=== PATIENT | female | born 1970 | race African-American/Black ===

== ENCOUNTER 2020-02-27 11:07 | Emergency (ER) | payer OTHER, SELFPAY ==
[2020-02-27] VITALS (7 sets, daily range): BP systolic 133; BP diastolic 84; PULSE 41–69; RESP 9–20; TEMP 36.8; O2SAT 100
--- NOTE | ~2020-02-27 | XR_ITS ---
XR chest 2V DATE: 02/27/2020 13:24 INDICATION: Chest pain. Severe headache. TECHNIQUE: PA and lateral views COMPARISON: 02/23/2017 two-view chest FINDINGS: Bilateral cervical ribs. Normal heart size. No hilar or mediastinal enlargement. No pulmonary infiltrate or consolidation, ple ural effusion or pulmonary vascular congestion or pneumothorax. IMPRESSION: No active cardiopulmonary disease Reviewed, dictated and finalized at location A.
--- NOTE | 2020-02-27 12:55 | ECG_ITS ---
Measurements Intervals [place] Rate: 42 P: 62 DE: 174 QRS: 59 QRSD: 86 T: 54 QT: 434 QTc: 367 Interpretive Statements SINUS BRADYCARDIA WITH SINUS ARRHYTHMIA ABNORMAL ECG Electronically Signed On 02-27-2020 15:00:57 CDT by Luis France D.O.
--- NOTE | 2020-02-27 13:02 | ED.HA ---
HPI - Headache General Chief Complaint: Headache Stated Complaint: BAD HEADACHE Time Seen by Provider: 02/27/20 12:47 History of Present Illness HPI Narrative: Patient is a 49-year-old female who presents ER with several complaints. First complaint is headache ongoing for 2 weeks. States she woke up from sleep with an abrasion to her right forehead and since then she has been having throbbing frontal headache. It will radiate to behind her ears bilaterally. She feels it behind her eyes. It is worsened with bright lights. She does have history of migraine headaches and this feels similar. No known trauma but she thinks she may have hit her head since she had the abrasion. She is taken Motrin with mild improvement of symptoms but not resolution of symptoms. Additionally patient reports she is been having intermittent chest pain for the last year. It is in the center of her chest and upper epigastrium and occasionally goes so left side of her chest. Reports it is worse in the morning and occasionally worse with certain types of movements. She also reports is worsened by smoking a cigarette. No exertional symptoms. No nausea/vomiting/dizziness. Reports occasionally she will feel some tingling in her fingers and have some sweats related to it when she wakes up. Has not seen a primary care doctor regarding this. Related Data Home Medications Medication Instructions Recorded Confirmed No Home Medications 02/27/20 02/27/20 Allergies Allergy/AdvReac Type Severity Reaction Status Date / Time No Known Allergies Allergy Verified 02/27/20 11:15 Review of Systems Review of Systems: All systems reviewed & are unremarkable except as noted in HPI and below Constitutional: Constitutional: Denies chills, Denies fatigue and Denies fever(s) Eyes: Eyes: Denies change in vision and Reports photophobia ENT: Denies nasal congestion and Denies sore throat Cardiovascular: Cardiovascular: Reports chest pain, Denies rapid heart rate and Denies radiating jaw, neck or arm pain Respiratory: Respiratory: Denies cough, Denies dyspnea and Denies wheezing Gastrointestinal: Gastrointestinal: Reports abdominal pain, Denies diarrhea, Denies nausea and Denies vomiting Neurologic: Denies dizziness, Denies focal weakness and Reports numbness PMFSH Past Medical History Medical History (Updated 02/27/20 @ 15:33 by Akil Goss MD) Healthy female adult Surgical History Surgical History (Updated 06/04/20 @ 13:05 by Akil Goss MD) H/O breast biopsy H/O: hysterectomy Social History Social History (Updated 02/27/20 @ 13:06 by Akil Goss MD) Smoking status: Current every day smoker Gender identity (if verbalized by the patient): Female Exam Narrative: Exam Narrative: GENERAL: Well-appearing, well-nourished, and in no acute distress. HEAD: Normocephalic, atraumatic. ENT: Mucous membranes moist. CHEST: Clear to auscultation. No respiratory distress. HEART: Regular rate and rhythm. Normal peripheral pulses. ABDOMEN: Soft, mild epigastric tenderness without guarding, nondistended, normal active bowel sounds. EXTREMITIES: Normal range of motion. No edema. SKIN: Warm, dry, no rash. NEURO: Alert and oriented x3. PSYCH: Normal mood and affect. Course Course Emergency Course: Headache resolved with Toradol. Informed of results. Discharge home. Vital Signs Vital signs: Vital Signs Temperature 98.2 F 02/27/20 11:10 Pulse Rate 69 02/27/20 11:10 Respiratory Rate 16 02/27/20 11:10 Blood Pressure 133/84 02/27/20 11:10 Pulse Oximetry 100 02/27/20 11:10 Temperature 98.2 F 02/27/20 11:10 Pulse Rate 41 L 02/27/20 14:15 Respiratory Rate 16 02/27/20 14:15 Blood Pressure 133/84 02/27/20 11:10 Pulse Oximetry 100 02/27/20 14:15 MDM - Headache Lab Data Result diagrams: 02/27/20 14:10 02/27/20 14:10 Labs: Lab Results 02/27/20 02/27/20
--- NOTE | 2020-02-27 13:09 | PC.NURSE ---
unable to draw labs due to pt taken to x[facility].
[2020-02-27] MEDS: KETOROLAC 30 MG/ML VIAL (*BKC) IV PUSH (14:14)
[2020-02-27 14:23] LABS: Hematocrit 39.6 % (37.0-47.0); Hemoglobin 12.9 g/dL (12.0-15.0); Mean Corpuscular HGB Conc 32.6 g/dl (32-36); Mean Corpuscular Hemoglobin 28.1 pg (26-34); Mean Corpuscular Volume 86.3 fl (80-100); Mean Platelet Volume 10.2 fl (7.4-10.4); Platelet Count Result 269 k/mm3 (150-375); Red Blood Count 4.59 M/mm3 (4.2-5.4); Red Cell Distribution Width 13.5 % (11.5-14.5); White Blood Count 8.5 K/mm3 (4.5-10.0)
[2020-02-27 14:34] LABS: Alanine Aminotransferase 15 U/L (4-35); Albumin Level 4.1 g/dL (3.5-5.1); Alkaline Phosphatase 69 U/L (38-126); Aspartate Amino Transferase 22 U/L (14-36); Bilirubin,Total 0.4 mg/dL (0.2-1.3); Blood Urea Nitrogen 10 mg/dL (7-17); Calcium 8.9 mg/dL (8.4-10.2); Carbon Dioxide 30 mmol/L (22-30); Chloride 106 mmol/L (98-107); Estimated CRCL calculation 89 ml/min; Estimated Glomerular Filt Rate > 60; Glucose 78 mg/dL (65-105); Lipase 152 U/L (23-300); Potassium 3.9 mmol/L (3.4-5.0); Sodium 136 mmol/L (137-145)
[2020-02-27 14:45] LABS: Troponin I < 0.012 ng/mL (0.000-0.034)
[2020-02-27 15:22] LABS: Lymphocytes Absolute Manual 4.16 K/mm3 (1.1-4.5); Lymphocytes Percent Manual 49 % (18-44); Neutrophils Percent Manual 45 % (46-73); Total Cells Counted 100
[2020-02-27 15:23] LABS: Eosinophils Absolute Manual 0.17 K/mm3 (0.02-0.5); Eosinophils Percent Manual 2 % (0-4); Monocytes Absolute Manual 0.34 K/mm3 (0.1-0.90); Monocytes Percent Manual 4 % (3-9); Platelet Estimate Adequate (Adequate)
[2020-02-27 15:24] LABS: Atypical Lymphocytes Present; Ovalocytes 1+ (NORMAL)
== END 2020-02-27 15:50 | disposition home or self-care (01) ==
PROVIDERS: Emergency Provider Emergency Medicine
DX: R51 Headache (principal); R07.89 Other chest pain; R00.1 Bradycardia, unspecified; F17.210 Nicotine dependence, cigarettes, uncomplicated
CPT/HCPCS: 36415; 71046; 80053; 83690; 84484; 85025; 93005; 96374; 99284; J1885

== ENCOUNTER → 2020-08-25 10:32 | Outpatient (CLI) | payer OTHER, SELFPAY ==
--- NOTE | ~2020-08-25 | XR_ITS ---
XR knee LT 3V 08/25/2020 11:27 Indication: Left knee pain Procedure: 3 views left knee Comparison: 12/18/2017 Findings: No acute fracture, subluxation or dislocation. There is mild osteoarthritis. No significant joint effusion. No foreign bodies. Impression: 1: Mild tricompartment osteoarthritis of the left knee. Reviewed, dictated and finalized at location B. [employer] Impression: 1: Mild tricompartment osteoarthritis of the left knee.
--- NOTE | ~2020-08-25 | XR_ITS ---
XR lumbar spine 2-3V 08/25/2020 11:27 Indication: Posterior neck pain Procedure: 3 views lumbar spine Comparison: No prior studies for comparison. Findings: There is dextroscoliosis. Vertebral body heights are maintained. There is disc narrowing at L5-S1. There are multilevel facet degenerative changes with hypertrophy at L3-4, L4-5 and L5-S1. No fracture or traumatic malalignment. Sacral foramen are symmetric. Impression: 1: Mild-moderate lumbar spondylosis. Reviewed, dictated and finalized at location B. 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
--- NOTE | ~2020-08-25 | XR_ITS ---
XR cervical spine 4-5V 08/25/2020 11:26 Indication: Posterior neck pain Procedure: 5 views cervical spine Comparison: No prior studies for comparison. Findings: There is straightening of normal cervical lordosis. Vertebral body and disc heights are pre served. No fracture or traumatic malalignment. No prevertebral soft tissue swelling. Lung apices are normal. Odontoid process is normal. Impression: 1: No significant abnormality of the cervical spine. Reviewed, dictated and finalized at location B. [employer] AGENT Impression: 1: No significant abnormality of the cervical spine.
== END ==
PROVIDERS: PCP Emergency Medicine; Visit Provider Emergency Medicine
DX: M47.816 Spondylosis without myelopathy or radiculopathy, lumbar region (principal); R20.2 Paresthesia of skin; R20.0 Anesthesia of skin
CPT/HCPCS: 72050; 72100; 73562

== ENCOUNTER 2020-12-24 11:59 | Emergency (ER) | payer OTHER, SELFPAY ==
--- NOTE | ~2020-12-24 | XR_ITS ---
EXAMINATION: XR chest 1V portable EXAM DATE: 12/24/2020 13:03 INDICATION: Mid chest pain. TECHNIQUE: Portable AP frontal chest x-ray was obtained. Comparison is made to prior examination from 02/27/2020. FINDINGS: The lungs are clear. There are no pleural effusions. Cardiac silhouette is prominent but magnified on this AP technique. There is no pneumothorax suspected. The bones and soft tissues are unremarkable. IMPRESSION: No acute cardiopulmonary findings. Reviewed, dictated and finalized at location A.
--- NOTE | 2020-12-24 12:08 | ECG_ITS ---
Measurements Intervals [place] Rate: 50 P: 58 [place]: 163 QRS: 40 QRSD: 84 T: 51 QT: 406 QTc: 370 Interpretive Statements SINUS BRADYCARDIA BASELINE ARTIFACT- I, III, AVR, AVL, AVF BORDERLINE ECG Electronically Signed On 12-24-2020 12:50:01 CDT by Luis France D.O.
[2020-12-24 12:10] VITALS: BP 142/88; PULSE 77; RESP 18; TEMP 35.7; O2SAT 100
[2020-12-24] MEDS: ASPIRIN 81 MG CHEWABLE TABLET 324 MG PO (12:17)
[2020-12-24 12:19] LABS: Basophils Percent Auto 0.4 % (0.2-1.2); Eosinophils Absolute Auto 0.1 K/mm3 (0-0.3); Eosinophils Percent Auto 1.2 % (0-4.4); Hemoglobin 12.7 g/dL (12.0-15.0); Immature Granulocyte Absolute 0.02 K/mm3 (0.00-0.031); Immature Granulocyte Percent A 0.2 % (0-0.5); Lymphocytes Absolute Auto 3.79 K/mm3 (0.9-3.2); Mean Corpuscular HGB Conc 33.4 g/dl (32-36); Mean Corpuscular Hemoglobin 27.7 pg (26-34); Mean Platelet Volume 9.6 fl (7.4-10.4); Monocytes Absolute Auto 0.6 K/mm3 (0.1-0.6); Monocytes Percent Auto 6.4 % (2.6-8.5); Neutrophils Absolute Auto 5.4 K/mm3 (1.3-6.7); Neutrophils Percent Auto 53.8 % (45.5-73.1); Platelet Count Result 236 k/mm3 (150-375); Red Blood Count 4.58 M/mm3 (4.2-5.4); Red Cell Distribution Width 12.9 % (11.5-14.5)
[2020-12-24 12:33] LABS: INR 0.9; Prothrombin Time 12.7 Seconds (11.1-14.7)
[2020-12-24 12:34] LABS: Partial Thromboplastin Time 26.7 SECONDS (22.3-36.8)
[2020-12-24 12:36] LABS: D Dimer 0.43 ug/mL (<0.48)
[2020-12-24 13:12] LABS: Anion Gap 4 mmol/L (8-16); Blood Urea Nitrogen 11 mg/dL (7-17); Carbon Dioxide 26 mmol/L (22-30); Chloride 110 mmol/L (98-107); Estimated CRCL calculation 112 ml/min; Estimated Glomerular Filt Rate > 60; Glucose 95 mg/dL (65-105); Sodium 140 mmol/L (137-145)
[2020-12-24 13:23] LABS: Troponin I < 0.012 ng/mL (0.000-0.034)
--- NOTE | 2020-12-24 13:41 | PC.NURSE ---
Pt requesting pain medication for headache. Dr. Colon notified. no new orders at this time
--- NOTE | 2020-12-24 13:52 | ED.GENADULT ---
HPI - General Adult General Chief complaint: Chest Pain Stated complaint: Nose Drainage with Chest Tightness Time Seen by Provider: 12/24/20 12:16 Source: patient and RN notes reviewed Mode of arrival: ambulatory Limitations: no limitations History of Present Illness HPI narrative: Patient is 50 years old -[place] female presents with left chest sharp pulling pain, nasal and postnasal discharge of awful smelling with facial pain. Started 2 days ago. Patient just came from [place] after spending 4 days with her family over the day. Patient denies any family member having similar symptoms. Patient denies exposure to anybody known having Covid 19 infection. Patient denies any history of COVID-19 infection or vaccination. Patient is a smoker and uses marijuana. Related Data Allergies Allergy/AdvReac Type Severity Reaction Status Date / Time No Known Allergies Allergy Verified 03/31/20 12:58 Review of Systems Review of Systems: Narrative: CONSTITUTIONAL: Denies fever, chills, or sweats. EYES: Denies visual changes, redness, or discharge. ENT: Denies rhinorrhea, congestion, sore throat, or otalgia. CARDIOVASCULAR: Denies chest pain, palpitations, or edema. RESPIRATORY: Denies cough or dyspnea. GASTROINTESTINAL: Denies abdominal pain, nausea, vomiting, or diarrhea. GENITOURINARY: Denies dysuria or hematuria. SKIN: Denies rash or itching. MUSCULOSKELETAL: Denies back pain, joint pain, or myalgia. NEUROLOGIC: Denies headache, numbness, or weakness. PSYCHIATRIC: Denies anxiety or depression. [facility] Past Medical History Medical History (Updated 12/24/20 @ 13:57 by Amber Colon MD) Healthy female adult Surgical History Surgical History (System 03/31/20 @ 12:58 by Zuleyka Blair) H/O breast biopsy H/O: hysterectomy Social History Social History (System 03/31/20 @ 12:58 by Zuleyka Blair) Smoking status: Current every day smoker Gender identity (if verbalized by the patient): Female Exam Narrative: Exam Narrative: General appearance: Well-developed, well-nourished Skin: Normal color Head: Normocephalic, nontraumatic Eyes: Clear conjunctiva ENT: Oropharynx normal, ears normal, nose normal, diffuse tenderness of the maxillary sinus bilaterally Neck: Supple, nontender Chest and respiratory: Airway patent, no respiratory distress, no accessory muscle use, mild tenderness left chest with light palpation, no rash or swelling. Heart: Regular rate/rhythm Abdomen: Soft, nontender, no organomegaly, quiet bowel sounds Vascular: Normal peripheral pulses, normal capillary refill. 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, no gross motor deficit Course Course Emergency Course: Stable Vital Signs Vital signs: Vital Signs Temperature 35.7 C L 12/24/20 12:10 Pulse Rate 77 12/24/20 12:10 Respiratory Rate 18 12/24/20 12:10 Blood Pressure 142/88 H 12/24/20 12:10 Pulse Oximetry 100 12/24/20 12:10 Temperature 35.7 C L 12/24/20 12:10 Pulse Rate 77 12/24/20 12:10 Respiratory Rate 18 12/24/20 12:10 Blood Pressure 142/88 H 12/24/20 12:10 Pulse Oximetry 100 12/24/20 12:10 Medical Decision Making [facility] Narrative Medical decision making narrative: Musculoskeletal pain, sinus infection, viral infection are my concern. Labs, chest x-ray, EKG, D-dimer ordered. Further plan to follow Differential Diagnosis Differential Diagnosis: Respiratory viral infection, musculoskeletal chest pain, acute sinusitis Vital Signs Vital Signs: Vital Signs Temperature 35.7 C L 12/24/20 12:10 Pulse Rate 77 12/24/20 12:10 Respiratory Rat
[2020-12-24] MEDS: KETOROLAC 30 MG/ML VIAL (*BKC) IV PUSH (14:11)
[2020-12-25 19:22] LABS: SARS-CoV-2 RNA PCR Negative
== END 2020-12-24 14:16 | disposition home or self-care (01) ==
PROVIDERS: Emergency Medicine; Emergency Provider Emergency Medicine; PCP Emergency Medicine
DX: R07.89 Other chest pain (principal); J01.00 Acute maxillary sinusitis, unspecified; F17.200 Nicotine dependence, unspecified, uncomplicated; Z20.822 Contact with and (suspected) exposure to COVID-19
CPT/HCPCS: 36415; 71045; 80048; 84484; 85025; 85380; 85610; 85730; 93005; 96374; 99284; A9270; C9803; J1885; U0003; U0005

== ENCOUNTER 2021-03-16 14:00 | Emergency (ER) | payer OTHER, SELFPAY ==
--- NOTE | ~2021-03-16 | XR_ITS ---
XR knee LT 3V 03/16/2021 14:46 Indication: Left knee pain Procedure: 3 views left knee Comparison: 08/25/2020. Findings: There is mild osteoarthritis of the left knee. No fracture, subluxation or dislocation. No significant joint effusion. No foreign bodies. Impression: 1: Mild osteoarthritis of the left knee. Reviewed, dictated and finalized at location B. Impression: 1: Mild osteoarthritis of the left knee.
[2021-03-16 14:20] VITALS: BP 150/86; PULSE 96; RESP 22; TEMP 36.6; O2SAT 99
[2021-03-16] MEDS: HYDROmorphone HCL INJ (*CRX) 1 MG/ML SYR IV PUSH (14:27)
--- NOTE | 2021-03-16 15:53 | ED.GENADULT ---
HPI - General Adult General Chief complaint: Extremity Injury, Lower Stated complaint: knee cap dislocated Source: patient, EMS and RN notes reviewed Limitations: no limitations History of Present Illness HPI narrative: Patient is a 50-year-old female who presents with left lateral knee pain that began while trying to get into her car today patient notes aching pain. patient denies other injury or trauma. Patient has not taken anything for pain presents per EMS was given morphine in route. Patient notes that she has had similar occurrences in the past but never followed up with specialty services Related Data Allergies Allergy/AdvReac Type Severity Reaction Status Date / Time No Known Allergies Allergy Verified 03/16/21 14:15 Review of Systems Review of Systems: All systems reviewed & are unremarkable except as noted in HPI and below PMFSH Past Medical History Medical History Healthy female adult Surgical History Surgical History H/O breast biopsy H/O: hysterectomy Social History Social History Smoking status: Current every day smoker Gender identity (if verbalized by the patient): Female Exam Narrative: Exam Narrative: GENERAL: Well-appearing, well-nourished, and in no acute distress. HEAD: Normocephalic, atraumatic. EYES: PERRLA and EOMI. ENT: Nares clear, no rhinorrhea or epistaxis. Mucous membranes moist. CHEST: Clear to auscultation. No respiratory distress. No wheezes rales or rhonchi HEART: Regular rate and rhythm. No murmur heard. Normal peripheral pulses. EXTREMITIES: Tenderness to the lateral aspect of the left knee no deformities noted SKIN: Warm, dry, no rash. NEURO: No focal deficits. Alert and oriented x3. Neurovascularly intact. Capillary refill less than 2 seconds PSYCH: Normal mood and affect. Course Course Emergency Course: Patient in the room in no distress aware of case findings treatment plan diagnosis agreeing to follow-up with specialty services pain resolved Vital Signs Vital signs: Vital Signs Temperature 97.8 F 03/16/21 14:20 Pulse Rate 96 03/16/21 14:20 Respiratory Rate 22 H 03/16/21 14:20 Blood Pressure 150/86 H 03/16/21 14:20 Pulse Oximetry 99 03/16/21 14:20 Temperature 97.8 F 03/16/21 14:20 Pulse Rate 96 03/16/21 14:20 Respiratory Rate 22 H 03/16/21 14:20 Blood Pressure 150/86 H 03/16/21 14:20 Pulse Oximetry 99 03/16/21 14:20 Medical Decision Making MDM Narrative Medical decision making narrative: Patients injury or pain is consistent with musculoskeletal etiology. No signs of neurological or vascular compromise on exam. Compartments and tisues are soft without signs of compartment syndrome. Pain is felt appropriate for further evaluation on an outpatient basis. Vital Signs Vital Signs: Vital Signs Temperature 97.8 F 03/16/21 14:20 Pulse Rate 96 03/16/21 14:20 Respiratory Rate 22 H 03/16/21 14:20 Blood Pressure 150/86 H 03/16/21 14:20 Pulse Oximetry 99 03/16/21 14:20 Temperature 97.8 F 03/16/21 14:20 Pulse Rate 96 03/16/21 14:20 Respiratory Rate 22 H 03/16/21 14:20 Blood Pressure 150/86 H 03/16/21 14:20 Pulse Oximetry 99 03/16/21 14:20 Imaging Data Radiologist's impression: ITS Impressions Knee X-Ray 03/16/21 14:51 Impression: 1: Mild osteoarthritis of the left knee. Discharge Plan Discharge Clinical Impression: Acute pain of left knee Patient Disposition: Home, Self-Care Condition: Stable Instructions: Antibiotic Form, Arthralgia (ED) Additional Instructions: Wear brace and use crutches. No weight on the affected leg until able to bear weight without pain. Ice and elevate extremity. Pain medication as needed and directed. Follow up with your doctor for further care in the next 7 days.
[2021-03-16 16:15] VITALS: BP 136/96; PULSE 96; RESP 18; TEMP 36.7; O2SAT 99
== END 2021-03-16 16:15 | disposition home or self-care (01) ==
PROVIDERS: Emergency Provider Emergency Medicine; PCP Emergency Medicine
DX: M25.562 Pain in left knee (principal); F17.200 Nicotine dependence, unspecified, uncomplicated; M17.12 Unilateral primary osteoarthritis, left knee
CPT/HCPCS: 73562; 96374; 99284; J1170

== ENCOUNTER 2021-04-08 10:47 | Emergency (ER) | payer OTHER, SELFPAY ==
--- NOTE | ~2021-04-08 | XR_ITS ---
EXAMINATION: XR chest 2V EXAM DATE: 04/08/2021 11:14 INDICATION: Chest pain elevated blood pressure. TECHNIQUE: Frontal and lateral projections of the chest obtained and reviewed. Comparison is made to prior examination from 12/24/2020. FINDINGS: The lungs are clear. There are no pleural effusions. The cardiomediastinal silhouette is within normal limits. There is no pneumothorax suspected. The bones and soft tissues are unremarkab le. IMPRESSION: No acute cardiopulmonary findings. Reviewed, dictated and finalized at location B.
--- NOTE | 2021-04-08 10:50 | ECG_ITS ---
Measurements Intervals [place] Rate: 56 P: 58 [place]: 176 QRS: 41 QRSD: 88 T: 52 QT: 405 QTc: 393 Interpretive Statements SINUS BRADYCARDIA WITH SINUS ARRHYTHMIA BORDERLINE ECG Electronically Signed On 04-08-2021 12:00:59 CDT by Luis France D.O.
[2021-04-08 10:51] VITALS: BP 161/94; PULSE 68; RESP 19; TEMP 36.8; O2SAT 98
[2021-04-08 10:57] VITALS: PULSE 62
--- NOTE | 2021-04-08 11:07 | ED.CHESTPAIN ---
HPI - Chest Pain General Chief Complaint: Chest Pain Stated Complaint: Abnormal EKG sent by PCP Time Seen by Provider: 04/08/21 10:56 Source: patient and RN notes reviewed Limitations: no limitations History of Present Illness HPI narrative: Patient is 51 years old -Citizen Of [place] female presents to the ED with intermittent pain at the right chest for the last 2 months. Sharp, stabbing, shooting pain, usually last for few seconds to few minutes each time. Patient denies any aggravating or relieving factors. Patient denies any fever, chills, nausea, vomiting, patient is a smoker, uses marijuana, does not drink. Related Data Allergies Allergy/AdvReac Type Severity Reaction Status Date / Time No Known Allergies Allergy Verified 04/08/21 10:57 Review of Systems Review of Systems: Narrative: CONSTITUTIONAL: Denies fever, chills, or sweats. EYES: Denies visual changes, redness, or discharge. ENT: Denies rhinorrhea, congestion, sore throat, or otalgia. CARDIOVASCULAR: Denies chest pain, palpitations, or edema. RESPIRATORY: Denies cough or dyspnea. GASTROINTESTINAL: Denies abdominal pain, nausea, vomiting, or diarrhea. GENITOURINARY: Denies dysuria or hematuria. SKIN: Denies rash or itching. MUSCULOSKELETAL: Denies back pain, joint pain, or myalgia. NEUROLOGIC: Denies headache, numbness, or weakness. PSYCHIATRIC: Denies anxiety or depression. PMFSH Past Medical History Medical History Healthy female adult Surgical History Surgical History H/O breast biopsy H/O: hysterectomy Social History Social History Smoking status: Current every day smoker Gender identity (if verbalized by the patient): Female Exam Narrative: Exam Narrative: General appearance: Well-developed, well-nourished Skin: Normal color Head: Normocephalic, nontraumatic Eyes: Clear conjunctiva ENT: Oropharynx normal, ears normal, nose normal Neck: Supple, nontender Chest and respiratory: Airway patent, no respiratory distress, no accessory muscle use, mild to moderate tenderness right chest, no mass, no bruises, no rash Heart: Regular rate/rhythm Abdomen: Soft, nontender, no organomegaly, quiet bowel sounds Vascular: Normal peripheral pulses, normal capillary refill. 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 Musculoskeletal, stress related is my concern. Labs, D-dimer, EKG chest x-ray, ordered. Further plan to follow Differential Diagnosis Differential diagnosis: Likely atypical chest pain, costochondritis and chest pain Lab Data Result diagrams: 04/08/21 11:08 04/08/21 11:08 Labs: Lab Results 04/08/21 04/08/21 04/08/21 Range/Units 11:08 11:08 11:42 WBC 9.8 (4.5-10.0) K/mm3 RBC 4.48 (4.2-5.4) M/mm3 Hgb 12.6 (12.0-15.0) g/dL Hct 38.4 (37.0-47.0) % MCV 85.7 (80-100) fl MCH 28.1 (26-34) pg MCHC 32.8 (
[2021-04-08 11:15] LABS: Basophils Absolute Auto 0.1 K/mm3 (0.0-0.1); Basophils Percent Auto 0.5 % (0.2-1.2); Eosinophils Absolute Auto 0.2 K/mm3 (0-0.3); Hematocrit 38.4 % (37.0-47.0); Hemoglobin 12.6 g/dL (12.0-15.0); Immature Granulocyte Absolute 0.03 K/mm3 (0.00-0.031); Immature Granulocyte Percent A 0.3 % (0-0.5); Lymphocytes Absolute Auto 3.14 K/mm3 (0.9-3.2); Lymphocytes Percent Auto 32.2 % (18.3-44.2); Mean Corpuscular HGB Conc 32.8 g/dl (32-36); Mean Corpuscular Hemoglobin 28.1 pg (26-34); Mean Corpuscular Volume 85.7 fl (80-100); Mean Platelet Volume 9.8 fl (7.4-10.4); Monocytes Absolute Auto 0.6 K/mm3 (0.1-0.6); Neutrophils Absolute Auto 5.8 K/mm3 (1.3-6.7); Platelet Count Result 244 k/mm3 (150-375); Red Blood Count 4.48 M/mm3 (4.2-5.4); Red Cell Distribution Width 14.2 % (11.5-14.5); White Blood Count 9.8 K/mm3 (4.5-10.0)
--- NOTE | 2021-04-08 11:21 | PC.NURSE ---
called lab talked to Mckenzie added on a D dimer at 1120
[2021-04-08 11:33] LABS: Anion Gap 5 mmol/L (8-16); Blood Urea Nitrogen 14 mg/dL (7-17); Calcium 9.3 mg/dL (8.4-10.2); Carbon Dioxide 24 mmol/L (22-30); Chloride 109 mmol/L (98-107); Estimated CRCL calculation 114 ml/min; Estimated Glomerular Filt Rate > 60; Glucose 87 mg/dL (65-105); Potassium 4.4 mmol/L (3.4-5.0); Sodium 138 mmol/L (137-145)
[2021-04-08 11:37] LABS: Troponin I < 0.012 ng/mL (0.000-0.034)
[2021-04-08 12:02] LABS: INR 0.9; Prothrombin Time 12.1 Seconds (11.1-14.7)
[2021-04-08 12:04] LABS: Partial Thromboplastin Time 26.5 SECONDS (22.3-36.8)
[2021-04-08 12:11] LABS: D Dimer 0.34 ug/mL (<0.48)
[2021-04-08] MEDS: KETOROLAC 30 MG/ML VIAL (*BKC) (12:12)
--- NOTE | 2021-04-08 12:12 | PC.NURSE ---
Verbal order received from EDP for 30mg toradol for 04/03 chest pain. Due to IT issues med not crossing from orders to MAR. Toradol administered at this time.
[2021-04-08 13:11] VITALS: BP 139/81; PULSE 54; RESP 14; O2SAT 100
== END 2021-04-08 13:18 | disposition home or self-care (01) ==
PROVIDERS: Emergency Provider Emergency Medicine; PCP Emergency Medicine
DX: R07.9 Chest pain, unspecified (principal); F17.200 Nicotine dependence, unspecified, uncomplicated
CPT/HCPCS: 36415; 71046; 80048; 84484; 85025; 85380; 85610; 85730; 93005; 96374; 99284; J1885

== ENCOUNTER 2021-04-13 15:51 | Outpatient (CLI) | payer OTHER, SELFPAY ==
--- NOTE | ~2021-04-13 | MM_ITS ---
EXAMINATION: MM screening stacey BI w inga HISTORY: Screening TECHNIQUE: Craniocaudal and mediolateral oblique 3-D tomosynthesis images were obtained and synthetic 2-D images were generated. CAD analysis was submitted and interpreted. COMPARISON: No prior mammogram is available for comparison at this institution. BREAST PARENCHYMAL COMPOSITION: There are scattered areas of fibroglandular density. FINDINGS: There is no evidence of suspicious mass, calcification, or architectural distortion to sugg est malignancy in either breast. There has been no suspicious interval change. IMPRESSION: 1. No mammographic evidence of malignancy. 2. Recommend routine screening mammography in one year. BI-RADS Category 1: Negative Reviewed, dictated and finalized at location A.
== END 2021-04-13 15:52 | disposition home or self-care (01) ==
LOC: ANHIMG 15:53
PROVIDERS: PCP Emergency Medicine; Visit Provider Emergency Medicine
DX: Z12.31 Encounter for screening mammogram for malignant neoplasm of breast (principal)
CPT/HCPCS: 77063; 77067

== ENCOUNTER 2021-12-20 11:06 | Emergency (ER) | payer MEDICAID, SELFPAY ==
[2021-12-20 11:20] VITALS: BP 143/82; PULSE 66; RESP 16; TEMP 36.8; O2SAT 99
--- NOTE | 2021-12-20 12:58 | ED.GENADULT ---
HPI - General Adult General Chief complaint: Unspecified Stated complaint: cyst on leg Time Seen by Provider: 12/20/21 12:06 Source: patient Mode of arrival: ambulatory Limitations: no limitations History of Present Illness HPI narrative: Patient is a 51-year-old female swollen, painful area on her left inguinal region, started 1 week ago, noticed some drainage yesterday but now resolved. Patient denies any fever or chills. Related Data Allergies Allergy/AdvReac Type Severity Reaction Status Date / Time No Known Allergies Allergy Verified 12/20/21 11:46 Review of Systems Review of Systems: Per HPI All systems reviewed & are unremarkable except as noted in HPI and below Constitutional: Constitutional: Denies body ache(s), Denies chills, Denies excessive sweating, Denies fatigue, Denies fever(s), Denies headache(s), Denies lethargy, Denies malaise, Denies weakness and Denies weight loss Eyes: Eyes: Denies blurry vision, Denies change in vision and Denies loss of vision ENT: Denies dizziness, Denies ear discharge, Denies headache(s), Denies lip swelling, Denies epistaxis, Denies nasal congestion, Denies neck pain, Denies throat swelling and Denies tongue swelling Cardiovascular: Cardiovascular: Denies chest pain, Denies chest pain at rest, Denies chest pain with activity, Denies diaphoresis, Denies rapid heart rate, Denies edema, Denies irregular heart rhythm, Denies lightheadedness, Denies palpitations, Denies dyspnea and Denies dyspnea on exertion Respiratory: Respiratory: Denies chest congestion, Denies cough, Denies hemoptysis, Denies dyspnea and Denies dyspnea on exertion Gastrointestinal: Gastrointestinal: Denies abdominal pain, Denies melena, Denies hematochezia, Denies diarrhea, Denies nausea, Denies vomiting and Denies hematemesis Musculoskeletal: Musculoskeletal: Denies abnormal gait, Denies deformity, Denies joint swelling, Denies limited range of motion, Denies neck pain and Denies numbness Neurologic: Denies Abnormal speech present, Denies abnormal gait, Denies confusion, Denies dizziness, Denies headache(s), Denies focal weakness, Denies loss of vision, Denies numbness, Denies Other visual disturbances, Denies Sensory deficit (Neuro) and Denies weakness Psychiatric: Psychiatric: Denies confusion, Denies depression, Denies auditory hallucinations, Denies homicidal ideation and Denies suicidal ideation Endocrine: Endocrine: Denies cold intolerance, Denies excessive sweating, Denies fatigue, Denies heat intolerance and Denies palpitations Hematologic/Lymphatic: Hematologic/Lymphatic: Denies easy bleeding and Denies easy bruising Allergic/Immunologic: Allergic/Immunologic: Denies lip swelling, Denies throat swelling and Denies tongue swelling PMFSH Past Medical History Medical History Healthy female adult Surgical History Surgical History H/O breast biopsy H/O: hysterectomy Social History Social History Smoking status: Current every day smoker Gender identity (if verbalized by the patient): Female Exam Const: General: cooperative, comfortable, no acute distress, well developed, alert and awake; No confusion Nutritional Appearance: obese Orientation/consciousness: oriented to person, oriented to place, oriented to time, patient oriented x3 and No confusion Limitations: no limitations HENMT: Head: normal to inspection, normocephalic and atraumatic Ears: hearing grossly normal bilaterally, TM normal on the right and TM normal on the left General nose exam: Normal external nose present, Normal nares present and No nasal discharge present Face and sinus: normal facial exam Mouth: Yes Normal oral and palatal mucosa present, Yes lip normal, Yes tongue normal and Yes oropharynx normal Throat: posterior oropharynx normal, tonsils normal and uvula mi
== END 2021-12-20 15:10 | disposition home or self-care (01) ==
PROVIDERS: Emergency Provider Emergency Medicine
DX: L02.214 Cutaneous abscess of groin (principal); F17.200 Nicotine dependence, unspecified, uncomplicated
CPT/HCPCS: 10061; 87070; 87075; 87205; 99283

== ENCOUNTER 2022-06-07 23:23 | Emergency (ER) | payer OTHER, SELFPAY ==
[2022-06-07 23:24] VITALS: BP 187/88; PULSE 77; RESP 16; TEMP 36.4; O2SAT 100
--- NOTE | 2022-06-08 01:16 | ED.HA ---
HPI - Headache General Chief Complaint: Headache <JEN Méndez Last Filed: 06/08/22 03:20> Stated Complaint: migraine <JEN Méndez Last Filed: 06/08/22 03:20> Time Seen by Provider: 06/07/22 23:40 <JEN Méndez Last Filed: 06/08/22 03:20> Source: patient <JEN Méndez Last Filed: 06/08/22 03:20> Mode of arrival: ambulatory <JEN Méndez Last Filed: 06/08/22 03:20> Limitations: no limitations <JEN Méndez Last Filed: 06/08/22 03:20> History of Present Illness HPI Narrative: Patient is a 52-year-old female who presents the ED with a migraine headache. Patient reports having a headache since last . She has intermittently been taking Tylenol with minimal relief. She does have a history of migraines but has never seen anyone for this. States this feels typical of her previous migraines but she is usually able to control them on her own. She also reports having nausea, photophobia, phonophobia, but denies fever, neck pain, weakness, cough, cold symptoms, vomiting, abdominal pain, vision changes. <JEN Méndez Last Filed: 06/08/22 03:20> Related Data Allergies/Adverse Reactions: Allergies Allergy/AdvReac Type Severity Reaction Status Date / Time No Known Allergies Allergy Verified 12/20/21 11:46 <JEN Méndez Last Filed: 06/08/22 03:20> Review of Systems Review of Systems: CONSTITUTIONAL: Denies fever, chills, or sweats. EYES: Reports photophobia. Denies visual changes. ENT: Reports phonophobia. Denies rhinorrhea, congestion, sore throat. CARDIOVASCULAR: Denies chest pain. RESPIRATORY: Denies cough or dyspnea. GASTROINTESTINAL: Reports nausea. Denies abdominal pain, vomiting, or diarrhea. MUSCULOSKELETAL: Denies neck pain. 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 Denies dizziness, numbness, or weakness. <Stefanie Acosta PA-C - Last Filed: 06/08/22 03:20> All systems reviewed & are unremarkable except as noted in HPI and below <Stefanie Acosta PA-C - Last Filed: 06/08/22 03:20> PMFSH Past Medical History Medical History: Medical History History of migraine <Stefanie Acosta PA-C - Last Filed: 06/08/22 03:20> Surgical History Surgical History: Surgical History H/O breast biopsy H/O: hysterectomy <Stefanie Acosta PA-C - Last Filed: 06/08/22 03:20> Social History Social History: Social History Smoking status: Current every day smoker Gender identity (if verbalized by the patient): Female <Stefanie Acosta PA-C - Last Filed: 06/08/22 03:20> Exam Narrative: GENERAL: Well appearing, well-nourished, non-toxic, in no acute distress. HEAD: Normocephalic, atraumatic. EYES: PERRL/EOMI, conjunctivae clear bilaterally. NECK: Supple. No adenopathy, no masses. Full nonpainful range of motion. No meningeal signs. RESPIRATORY: Airway patent, respirations nonlabored. Clear to auscultation bilaterally, no rales, rhonchi, wheezing. CARDIOVASCULAR: Regular rate and rhythm without murmurs, rubs, or gallops. Peripheral pulses 2+ and equal bilaterally. ABDOMINAL: Soft, nontender, nondistended, no hepatosplenomegaly. Normoactive BS. MUSCULOSKELETAL: Moves all extremities. Strength/ROM intact without gross deformities. SKIN: Warm, dry, normal color. No rashes. NEURO: A&O X3. Speech clear. Cranial nerves II-XII grossly intact. Steady gait. No ataxic movements. Strength 5 out of 5 in upper and lower extremities bilaterally. Equal leather roller strengths. No focal deficits. PSYCHIATRIC: Appropriate mood and affect. Normal interaction. <Stefanie Acosta PA-C - Last Filed: 06/08/22 03:20> Course [employer]/PA Physician Supervision I discussed
[2022-06-08 01:40] VITALS: BP 153/78; PULSE 70; RESP 20; O2SAT 100
[2022-06-08] MEDS: diphenhydrAMINE HCl INJ 50 MG/ML VIAL 25 MG IV PUSH (01:45)
[2022-06-08] MEDS: KETOROLAC 30 MG/ML VIAL (*BKC) IV PUSH (01:45)
[2022-06-08] MEDS: METOCLOPRAMIDE HCL INJ 10 MG/2 ML VIAL IV PUSH (01:45)
[2022-06-08] MEDS: SODIUM CHLORIDE 0.9% IV 1,000 ML 999 ML IV CONT (01:47)
[2022-06-08 03:08] VITALS: BP 148/75; PULSE 63; RESP 18; O2SAT 100
== END 2022-06-08 03:17 | disposition home or self-care (01) ==
PROVIDERS: Emergency Provider Preventive Medicine Aerospace Medicine
DX: G43.909 Migraine, unspecified, not intractable, without status migrainosus (principal)
CPT/HCPCS: 96365; 96375; 99284; J0131; J1100; J1200; J1885; J2765; J7030

== ENCOUNTER 2023-02-16 23:12 | Emergency (ER) | payer OTHER, SELFPAY ==
--- NOTE | ~2023-02-16 | XR_ITS ---
EXAMINATION: XR chest 2V DATE: 02/16/2023 23:36 INDICATION: Chest pain and shortness of breath TECHNIQUE: PA and lateral views of the chest are obtained. COMPARISON: 04/08/2021 FINDINGS: There is mild atelectasis of the lung bases. The lungs are free of focal airspace opacities . No pleural effusion or pneumothorax. The cardiomediastinal silhouette is normal. The visualized bon es and soft tissues are unremarkable. IMPRESSION: 1. No acute cardiopulmonary abnormality. Reviewed, dictated and finalized at location [facility].
[2023-02-16 23:14] VITALS: BP 172/97; PULSE 73; RESP 20; TEMP 36.1; O2SAT 99
--- NOTE | 2023-02-16 23:20 | ECG_ITS ---
Measurements Intervals [place] Rate: 47 P: 53 MS: 168 QRS: 34 QRSD: 82 T: 53 QT: 409 QTc: 364 Interpretive Statements SINUS BRADYCARDIA BASELINE WANDER- I, III, AVL, AVF ABNORMAL ECG COMPARED TO ECG 04/08/2021 10:56:47 HEART RATE HAS DECREASED Electronically Signed On 02-17-2023 6:35:49 CDT by Luis France D.O.
[2023-02-16 23:35] LABS: Basophils Percent Auto 0.2 % (0.2-1.2); Eosinophils Absolute Auto 0.1 K/mm3 (0-0.3); Eosinophils Percent Auto 1.5 % (0-4.4); Hematocrit 36.9 % (37.0-47.0); Hemoglobin 12.3 g/dL (12.0-15.0); Immature Granulocyte Absolute 0.01 K/mm3 (0.00-0.031); Immature Granulocyte Percent A 0.1 % (0-0.5); Lymphocytes Absolute Auto 3.46 K/mm3 (0.9-3.2); Lymphocytes Percent Auto 38.3 % (18.3-44.2); Mean Corpuscular HGB Conc 33.3 g/dl (32-36); Mean Corpuscular Hemoglobin 28.1 pg (26-34); Mean Corpuscular Volume 84.2 fl (80-100); Mean Platelet Volume 9.8 fl (7.4-10.4); Monocytes Absolute Auto 0.6 K/mm3 (0.1-0.6); Monocytes Percent Auto 6.6 % (2.6-8.5); Neutrophils Absolute Auto 4.8 K/mm3 (1.3-6.7); Neutrophils Percent Auto 53.3 % (45.5-73.1); Platelet Count Result 242 k/mm3 (150-375); Red Blood Count 4.38 M/mm3 (4.2-5.4); Red Cell Distribution Width 13.7 % (11.5-14.5)
[2023-02-16 23:45] LABS: Alanine Aminotransferase 22 U/L (6-35); Albumin Level 4.1 g/dL (3.5-5.1); Alkaline Phosphatase 89 U/L (38-126); Anion Gap 6 mmol/L (8-16); Aspartate Amino Transferase 24 U/L (14-36); Bilirubin,Total 0.3 mg/dL (0.2-1.3); Blood Urea Nitrogen 12 mg/dL (7-17); Calcium 8.9 mg/dL (8.4-10.2); Carbon Dioxide 27 mmol/L (22-30); Chloride 107 mmol/L (98-107); Estimated CRCL calculation 117 ml/min; Estimated Glomerular Filt Rate > 60; Glucose 99 mg/dL (65-110); Lipase 128 U/L (23-300); Potassium 3.7 mmol/L (3.4-5.0); Sodium 140 mmol/L (137-145)
--- NOTE | 2023-02-16 23:45 | ED.GENADULT ---
HPI - General Adult General Chief complaint: Headache <JEN Clements Last Filed: 02/17/23 02:46> Stated complaint: migraine <JEN Clements Last Filed: 02/17/23 02:46> Time Seen by Provider: 02/16/23 23:21 <JEN Clements Last Filed: 02/17/23 02:46> Source: patient <JEN Clements Last Filed: 02/17/23 02:46> Mode of arrival: ambulatory <JEN Clements Last Filed: 02/17/23 02:46> Limitations: no limitations <JEN Clements Last Filed: 02/17/23 02:46> History of Present Illness HPI narrative: This is a 52-year-old female with PMH of migraine presents to the ED with multiple complaints. Patient reports migraine with with pain behind the eyes. She reports nausea/vomiting/diarrhea. She reports shortness of breath and chest pain. She also reports numbness and tingling in her hands and feet. She states most of the symptoms started on Monday this week. She has had some increased chest pain and shortness of breath today so she came to the ER. She also reports blurred vision. Patient states she was taking Tylenol for the headache which had no relief. Denies fevers, chills, abdominal pain, urinary symptoms. Denies any alcohol use. Endorses marijuana use but no other drug use. States she has no medical history other than migraines and does not take any regular medications <JEN Clements Last Filed: 02/17/23 02:46> Related Data Allergies/adverse reactions: Allergies Allergy/AdvReac Type Severity Reaction Status Date / Time No Known Allergies Allergy Verified 12/20/21 11:46 <JEN Clements Last Filed: 02/17/23 02:46> Review of Systems Review of Systems: CONSTITUTIONAL: Denies fever, chills, or sweats. EYES: Denies visual changes, redness, or discharge. ENT: Denies rhinorrhea, congestion, sore throat, or otalgia. CARDIOVASCULAR: Denies chest pain, palpitations, or edema. RESPIRATORY: Denies cough or dyspnea. GASTROINTESTINAL: See HPI GENITOURINARY: Denies dysuria or hematuria. SKIN: Denies rash or itching. MUSCULOSKELETAL: Denies back pain, joint pain, or myalgia. NEUROLOGIC: Denies headache, numbness, dizziness, or weakness. PSYCHIATRIC: Denies anxiety or depression. <Gregg Damon PA-C - Last Filed: 02/17/23 02:46> PMFSH Past Medical History Medical History: Medical History History of migraine <Gregg Damon PA-C - Last Filed: 02/17/23 02:46> Surgical History Surgical History: Surgical History H/O breast biopsy H/O: hysterectomy <Gregg Damon PA-C - Last Filed: 02/17/23 02:46> Social History Social History: Social History Smoking status: Current every day smoker Gender identity (if verbalized by the patient): Female <Gregg Damon PA-C - Last Filed: 02/17/23 02:46> Exam Narrative: GENERAL: Well-appearing, well-nourished, and in no acute distress. Resting comfortably in bed. HEAD: Normocephalic, atraumatic. EYES: PERRLA and EOMI. ENT: Nares clear, no rhinorrhea or epistaxis. Mucous membranes moist. Oropharynx without tonsillar hypertrophy exudate or other lesions. NECK: Supple. No adenopathy or masses. CHEST: No respiratory distress. Clear to auscultation. No wheezes rales or rhonchi HEART: Regular rate and rhythm. No murmur heard. Normal peripheral pulses. ABDOMEN: Soft, nontender, nondistended, normal active bowel sounds. MSK: Normal range of motion. No edema. SKIN: Warm, dry, no rash. NEURO: Alert and oriented x3. No focal deficits. Cranial nerves II through XII intact. PSYCH: Normal mood and affect. <Gregg Damon PA-C - Last Filed: 02/17/23 02:46> Course Course Emergency Course: Reevaluation 0057: Patient states that her headache is much improved, as well as the chest pain
[2023-02-16 23:47] LABS: Prothrombin Time 13.3 Seconds (11.1-14.7)
[2023-02-16 23:48] LABS: Partial Thromboplastin Time 26.9 SECONDS (22.3-36.8)
[2023-02-17] VITALS (12 sets, daily range): BP systolic 146; BP diastolic 83; PULSE 38–80; RESP 11–25; O2SAT 98–100
[2023-02-17] LABS: Troponin I < 0.012 ng/mL (0.000-0.034)
[2023-02-17] MEDS: ONDANSETRON INJ 4 MG/2 ML VIAL IV PUSH (00:16)
[2023-02-17] MEDS: KETOROLAC 15 MG/ML VIAL (*BKC) IV PUSH (00:16)
[2023-02-17] MEDS: diphenhydrAMINE HCl INJ 50 MG/ML VIAL 25 MG IV PUSH (00:16)
[2023-02-17] MEDS: SODIUM CHLORIDE 0.9% IV 1,000 ML 999 ML IV CONT (00:16)
[2023-02-17] MEDS: PROCHLORPERAZINE EDISYLATE 10 MG/2 ML VIAL IV PUSH (00:16)
[2023-02-17 02:56] LABS: Troponin I < 0.012 ng/mL (0.000-0.034)
== END 2023-02-17 03:52 | disposition home or self-care (01) ==
PROVIDERS: Emergency Medicine; Emergency Provider Physician Assistant
DX: R51.9 Headache, unspecified (principal); R07.9 Chest pain, unspecified; Z90.710 Acquired absence of both cervix and uterus; R00.1 Bradycardia, unspecified
CPT/HCPCS: 36415; 71046; 80053; 83690; 84484; 85025; 85610; 85730; 93005; 96361; 96374; 96375; 99284; J0780; J1200; J1885; J2405; J7030

== ENCOUNTER 2023-08-06 11:39 | Emergency (ER) | payer SELFPAY ==
[2023-08-06 11:49] VITALS: BP 144/90; PULSE 68; RESP 16; TEMP 36.7; O2SAT 100
[2023-08-06 11:52] VITALS: BP 144/90; PULSE 68; RESP 16; TEMP 36.7; O2SAT 100
--- NOTE | 2023-08-06 12:41 | ED.GENADULT ---
HPI - General Adult General Chief complaint: Nausea/Vomiting/Diarrhea Stated complaint: Vomiting/Diarrhea Source: patient Mode of arrival: ambulatory Limitations: no limitations History of Present Illness HPI narrative: patient presents for evaluation of nausea, vomiting, diarrhea for the last 5 days. No new foods or antibiotic use. Her son currently has similar symptoms. Her symptoms are improving but her employer requested she receive a note to allow her to return to work. No fever, chills, abdominal pain, respiratory symptoms. She has had a dull frontal headache for a few days. Related Data Allergies Allergy/AdvReac Type Severity Reaction Status Date / Time No Known Allergies Allergy Verified 08/06/23 11:52 Review of Systems Review of Systems: CONSTITUTIONAL: Denies fever, chills, or sweats. EYES: Denies visual changes, redness, or discharge. ENT: Denies rhinorrhea, congestion, sore throat, or otalgia. CARDIOVASCULAR: Denies chest pain, palpitations, or edema. RESPIRATORY: Denies cough or dyspnea. GASTROINTESTINAL: Reports nausea, vomiting and diarrhea. Denies abdominal pain. GENITOURINARY: Denies dysuria or hematuria. SKIN: Denies rash or itching. MUSCULOSKELETAL: Denies back pain, joint pain, or myalgia. NEUROLOGIC:Reports headache. Denies numbness, dizziness, or weakness. PSYCHIATRIC: Denies anxiety or depression. [facility] Past Medical History Medical History History of migraine Surgical History Surgical History H/O breast biopsy H/O: hysterectomy Family History Family History Mother Family history non-contributory Social History Social History (Updated 08/06/23 @ 12:50 by Zeeshan Carr [facility], ) Smoking packs per day: 0.5 Smoking cigarettes per day: 10.0 Smoking status: Current every day smoker Substance use: current Substance use type: marijuana Living arrangements: with family Gender identity (if verbalized by the patient): Female Sexual Orientation (if Verbalized by the Patient): Straight or Heterosexual Spiritual care concerns: No Exam Narrative: GENERAL: Smells strongly of marijuana. Well-appearing, well-nourished, and in no acute distress. HEAD: Normocephalic, atraumatic. EYES: PERRLA and EOMI. ENT: Nares clear, no rhinorrhea or epistaxis. Mucous membranes moist. Oropharynx without tonsillar hypertrophy exudate or other lesions. Bilateral TMs pearly jerez nonbulging NECK: Supple. No adenopathy or masses. No carotid bruits or JVD CHEST: Clear to auscultation. No respiratory distress. No wheezes rales or rhonchi HEART: Regular rate and rhythm. No murmur heard. Normal peripheral pulses. ABDOMEN: Soft, nontender, nondistended, normal active bowel sounds. EXTREMITIES: Normal range of motion. No edema. SKIN: Warm, dry, no rash. NEURO: No focal deficits. Alert and oriented x3. PSYCH: Normal mood and affect. Course Course Emergency Course: Tanvir is a 53-year-old female who presented for evaluation of nausea, vomiting, diarrhea. COVID and influenza negative. Her symptoms are improving. She essentially came in today to receive a note to allow her to return to work. She should increase hydration. Will dc with zofran. Recommende BRAT diet. Follow up with primary provider. Go to the ER for worsening symptoms. Pt in agreement with plan of care. Level of Care: Express Care Visit Vital Signs Vital signs: Vital Signs Temperature 36.7 C 08/06/23 11:49 Pulse Rate 68 08/06/23 11:49 Respiratory Rate 16 08/06/23 11:49 Blood Pressure 144/90 H 08/06/23 11:49 Pulse Oximetry 100 08/06/23 11:49 Oxygen Delivery Room Air 08/06/23 11:49 Temperature 36.7 C 08/06/23 11:52 Pulse Rate 68 08/06/23 11:52 Respiratory Rate 16 08/06/23 11:52 Blood Pressure 144/9
== END 2023-08-06 12:45 | disposition home or self-care (01) ==
PROVIDERS: Emergency Provider Nurse Practitioner
DX: R11.2 Nausea with vomiting, unspecified (principal); R19.7 Diarrhea, unspecified; Z20.822 Contact with and (suspected) exposure to COVID-19; F17.210 Nicotine dependence, cigarettes, uncomplicated; F12.90 Cannabis use, unspecified, uncomplicated
CPT/HCPCS: 87426; 87804; 99213; C9803; G0463

== ENCOUNTER 2023-08-21 15:35 | Emergency (ER) | payer SELFPAY ==
--- NOTE | ~2023-08-21 | US_ITS ---
US breast RT limited DATE: 08/21/2023 22:14 INDICATION: Pain, redness, swelling of right areolar region TECHNIQUE: Real time and color flow imaging targeted to area of complaint COMPARISON: 04/13/2021 bilateral screening mammogram FINDINGS: There is an approximately 12 x 19 mm irregular complex mass in the right subareolar area, w ith mixed solid and sonolucent components, with through transmission and posterior enhancement and so me internal vascularity. The differential diagnosis includes abscess and malignancy. Diagnostic stacey mography is recommended. IMPRESSION: BIRADS Category 0: Incomplete; need additional imaging evaluation RECOMMENDATION: Diagnostic mammogram is recommended Reviewed, dictated and finalized at [facility]. Reviewed, dictated and finalized at location A. ARD/STEWARDESS WINE
--- NOTE | ~2023-08-21 | XR_ITS ---
EXAMINATION: XR knee LT min 4V DATE: 08/21/2023 20:11 INDICATION: Left knee pain post fall TECHNIQUE: Anteroposterior, 2 oblique and crosstable lateral views of the left knee were obtained COMPARISON: None. FINDINGS: Alignment is normal. No fracture. Joint spaces appear normal on nonweightbearing imaging however the re are small marginal ossified small 3 compartments largest along the lateral tibial plateau consiste nt with at least mild tricompartmental osteoarthritis. Moderate-sized left knee joint effusion withou t layering lipohemarthrosis. Soft tissues are unremarkable. IMPRESSION: 1. At least mild tricompartmental osteoarthritis with moderate-sized left knee joint effusion. No acu te osseous abnormality. Reviewed, dictated and finalized at location A. NG PROMOTER IMPRESSION: 1. At least mild tricompartmental osteoarthritis with moderate-sized left knee joint effusion. No acute osseous abnormality.
[2023-08-21 15:52] VITALS: BP 157/86; PULSE 63; RESP 15; TEMP 36.6; O2SAT 100
[2023-08-21] MEDS: KETOROLAC (*BKC) 60 MG/2 ML VIAL IM (20:14)
--- NOTE | 2023-08-21 21:09 | ED.LOWEXIN ---
HPI - Extremity Injury (Lower) General Chief Complaint: Extremity Injury, Lower Stated Complaint: L knee feels out of place; R breast pain Time Seen by Provider: 08/21/23 18:49 Source: patient Mode of arrival: ambulatory Limitations: no limitations History of Present Illness HPI Narrative: Patient is a 53-year-old female who presents the ED with report of left knee and right breast pain. Patient reports she tripped and fell 1 week ago and landed directly on her left knee. She states it feels unstable since then. Complains of swelling. Has been taking Tylenol without improvement. Patient also reports having pain and redness to her right breast for the last 3 days. She states she had surgery for a cyst in the same breast several years ago that presented similarly. She denies any fevers, drainage, numbness, tingling. Hx chronic nipple inversion. Related Data Allergies Allergy/AdvReac Type Severity Reaction Status Date / Time No Known Allergies Allergy Verified 08/06/23 11:52 Review of Systems Review of Systems: CONSTITUTIONAL: Denies fever, chills, or sweats. CARDIOVASCULAR: Denies chest pain, palpitations, or edema. RESPIRATORY: Denies cough or dyspnea. GASTROINTESTINAL: Denies abdominal pain, nausea, vomiting. SKIN: See HPI. MUSCULOSKELETAL: See HPI. NEUROLOGIC: Denies tingling, numbness, or weakness. All systems reviewed & are unremarkable except as noted in HPI and below PMFSH Past Medical History Medical History History of migraine Surgical History Surgical History H/O breast biopsy H/O: hysterectomy Family History Family History Mother Family history non-contributory Social History Social History Smoking packs per day: 0.5 Smoking cigarettes per day: 10.0 Smoking status: Current every day smoker Substance use: current Substance use type: marijuana Living arrangements: with family Gender identity (if verbalized by the patient): Female Sexual Orientation (if Verbalized by the Patient): Straight or Heterosexual Spiritual care concerns: No Exam Narrative: GENERAL: Well appearing, obese with BMI of 34.0, non-toxic, in no acute distress. HEAD: Normocephalic, atraumatic. NECK: Supple. No adenopathy, no masses. 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 Area of redness, induration, TTP just posterior to nipple. No drainage. No lymphangitis. No palpable masses. No palpable fluctuance. RESPIRATORY: Airway patent, respirations nonlabored. Clear to auscultation bilaterally, no rales, rhonchi, wheezing. CARDIOVASCULAR: Regular rate and rhythm without murmurs, rubs, or gallops. Pedal pulses 2+ and equal bilaterally. MUSCULOSKELETAL: Moves all extremities. Strength/ROM intact without gross deformities. TTP along medial and inferior joint spaces of L knee. Sensation intact. SKIN: Warm, dry, normal color. No rashes. NEURO: A&O X3. Speech clear. Cranial nerves II-XII grossly intact. Steady gait. No ataxic movements. PSYCHIATRIC: Appropriate mood and affect. Normal interaction. Course Vital Signs Vital signs: Vital Signs Temperature 97.8 F 08/21/23 15:52 Pulse Rate 63 08/21/23 15:52 Respiratory Rate 15 08/21/23 15:52 Blood Pressure 157/86 H 08/21/23 15:52 Pulse Oximetry 100 08/21/23 15:52 Temperature 97.6 F 08/21/23 23:09 Pulse Rate 55 L 08/21/23 23:09 Respiratory Rate 18 08/21/23 23:09 Blood Pressure 154/80 H 08/21/23 23:09 Pulse Oximetry 100 08/21/23 23:09 MDM - Extremity Injury (Lower) MDM Narrative Medical decision making narrative: patient presents to ED week history of left knee pain status post fall, pain to R breast X 3d. Neurovascula
[2023-08-21] MEDS: ACETAMINOPHEN 500 MG TABLET 1000 MG PO (22:45)
[2023-08-21 23:09] VITALS: BP 154/80; PULSE 55; RESP 18; TEMP 36.4; O2SAT 100
[2023-08-22] MEDS: traMADol HCL (*CRX) 50 MG TABLET PO (00:54)
[2023-08-22 03:45] VITALS: BP 135/92; PULSE 56; RESP 18; O2SAT 100
== END 2023-08-22 03:45 | disposition home or self-care (01) ==
PROVIDERS: Emergency Provider Physician Assistant
DX: M25.562 Pain in left knee (principal); N64.4 Mastodynia; M17.12 Unilateral primary osteoarthritis, left knee
CPT/HCPCS: 73564; 76642; 96372; 99284; A9270; J1885

== ENCOUNTER 2024-09-01 08:55 | Emergency (ER) | payer SELFPAY ==
[2024-09-01] VITALS (9 sets, daily range): BP systolic 112–147; BP diastolic 67–93; PULSE 46–72; RESP 13–20; TEMP 36.1; O2SAT 98–100
--- NOTE | ~2024-09-01 | XR_ITS ---
EXAMINATION: XR chest 1V portable DATE: 09/01/2024 12:32 INDICATION: Chest pain. TECHNIQUE: A single frontal view of the chest was obtained. COMPARISON: Chest 2 views 02/16/2023, CT abdomen and pelvis 01/28/2019 FINDINGS: There is no pneumonia, pleural effusion, or pneumothorax. The heart size is normal. IMPRESSION: 1. No acute cardiopulmonary disease. Reviewed, dictated and finalized at location A. ATIONAL ADVISER
--- NOTE | 2024-09-01 10:10 | PC.NURSE ---
Patient states she has not taken anything for her headache today. Patient states she has kind of a history of migraines and has been seen in this ED for the same
--- NOTE | 2024-09-01 11:40 | ECG_ITS ---
Test Date: 2024-09-01 12:03:20 Measurements Intervals [place] Rate: 49 P: 59 CA: 175 QRS: 52 QRSD: 85 T: 72 QT: 444 QTc: 403 Interpretive Statements SINUS BRADYCARDIA WITH SINUS ARRHYTHMIA NONSPECIFIC T-WAVE ABNORMALITY No previous ECG available for comparison Electronically Signed On 09-01-2024 15:04:47 [employer] by Lon Mulligan M.D.
--- NOTE | 2024-09-01 11:49 | ED_ITS ---
HPI - Headache General Chief Complaint: Headache Stated Complaint: migraine/leg cramping Time Seen by Provider: 09/01/24 10:20 History of Present Illness HPI Narrative: 54-year-old female with no real pertinent past medical history presenting to the emergency department chief complaint of migraine headache, chest pain, bilateral leg cramping. She states that she is most concerned about the migraine and the chest pain sensation. She states that she has a history of 1 migraine past but does not take any medications for it. She tried some [id number] remedies at home without any relief her symptoms. Headache came on 1st and then started having some associated indigestion chest pain sensation. Chest pain comes and goes and describes a sharp indigestion sensation. She also notes that she has had bilateral leg cramping sensations that come and go an alternate sides but no history of DVT or pulmonary embolism. Denies any trauma, recent injuries, illnesses, long travel, recent procedures. Was otherwise in her normal state of health. She states the headache has been going on for approximately 2 days. Not the worst headache she has ever had as she has had similar episodes in the past. No associated nausea, vomiting, vision changes, fever, chills, shortness of breath, back pain, abdominal pain, urinary complaints. Related Data Allergies Allergy/AdvReac Type Severity Reaction Status Date / Time No Known Allergies Allergy Verified 09/01/24 09:03 Review of Systems Review of Systems: As reviewed above in HPI [facility] Past Medical History Medical History History of migraine Surgical History Surgical History H/O breast biopsy H/O: hysterectomy Family History Family History Mother Family history non-contributory Social History Social History Smoking packs per day: 0.5 Smoking cigarettes per day: 10.0 Smoking status: Current every day smoker Substance use: current Substance use type: marijuana Living arrangements: with family Gender identity (if verbalized by the patient): Female Sexual Orientation (if Verbalized by the Patient): Straight or Heterosexual Spiritual care concerns: No Exam Narrative: GENERAL: [Well-appearing, well-nourished, and in no acute distress.] HEAD: [Normocephalic, atraumatic.] EYES: [PERRLA and EOMI.] ENT: Nares clear, no rhinorrhea or epistaxis. Mucous membranes moist. NECK: Supple. CHEST: [Clear to auscultation. No respiratory distress.] HEART: [Regular rate and rhythm]. No murmur heard. [Normal peripheral pulses.] ABDOMEN: [Soft, nondistended], [nontender], [No rigidity or guarding] EXTREMITIES: Normal range of motion. [No edema.] SKIN: Warm, dry, no rash. NEURO: [No focal deficits]. Alert and oriented [x3.] PSYCH: [Normal mood and affect.] Course Vital Signs Vital signs: Vital Signs Temperature 36.1 C L 09/01/24 08:58 Pulse Rate 57 L 09/01/24 08:58 Respiratory Rate 18 09/01/24 08:58 Blood Pressure 140/73 09/01/24 08:58 Pulse Oximetry 100 09/01/24 08:58 Oxygen Delivery Room Air 09/01/24 08:58 Temperature 36.1 C L 09/01/24 08:58 Pulse Rate 50 L 09/01/24 14:12 Respiratory Rate 17 09/01/24 14:12 Blood Pressure 147/93 H 09/01/24 14:12 Pulse Oximetry 100 09/01/24 14:12 Oxygen Delivery Room Air 09/01/24 08:58 MDM - Headache MDM Narrative Medical decision making narrative: 54-year-old otherwise healthy female presenting to the emergency room with multiple complaints. Her most chief complaint is a migraine headache located the left side of her head and throbbing in sensation. She says associated some chest pain sensations that come and go and she is also noting that she has had bilateral leg cramps for over a year that come and go. She has a benign examination with normal neurological assessment, extraocular movements are full without any pain, pupils are equal reactive, no fever, hypoxia, blood pressure concerns or tachypnea. No focal findings on neuro assessment, cardiovascular assessment with clear breath sounds, symmetric pulses and good warm well-perf used extremities. Differential is broad but likely includes a migraine headache, tension type headache, costochondral chest pain, less likely ACS or pneumonia, pneumothorax. Very low suspicion DVT or PE however with the bilateral leg cramping and chest pain sensation we did elect to order a broader workup including electrolyte panel, CBC, D-dimer, chest x-ray, EKG. We will treat her migraine headache with a combination of Compazine, Benadryl, magnesium, fluid bolus and will reassess thereafter. Patient was re-evaluated several times and had complete symptomatic resolution while here in the emergency department. laboratory studies showed no leukocytosis or anemia. Negative troponin, Urinalysis without infectious findings, normal electrolyte profile, normal renal and hepatic function panel. Negative D-dimer. chest x-ray shows no acute process. EKG interpreted without any acute ischemic findings. Given patient's symptom resolution and lack of concerning findings on her workup I believe she can be safely discharged home with regular PCP follow-up. I discussed migraines with the patient and no present indications started on any kind of prophylactic or abortive medications but she should talk with her PCP about potentially starting something if this was to recur. She expressed understanding is also given return precautions. Medical Records Attestation: I reviewed the patient's medical records. Lab Data Attestation: I reviewed the patient's lab results. 09/01/24 11:58 09/01/24 11:58 Labs: Lab Results 09/01/24 09/01/24 Range/Units 11:58 11:59 WBC 9.1 (4.5-10.0) K/mm3 RBC 4.62 (4.2-5.4) M/mm3 Hgb 12.8 (12.0-15.0) g/dL Hct 39.3 (37.0-47.0) % MCV 85.1 (80-100) fl MCH 27.7 (26-34) pg MCHC 32.6 (32-36) g/dl RDW 13.6 (11.5-14.5) % Plt Count 241 (150-375) k/mm3 MPV 9.9 (7.4-10.4) fl Immature Gran % (Auto) 0.1 (0-0.5) % Neut % (Auto) 36.0 L (45.5-73.1) % Lymph % (Auto) 54.9 H (18.3-44.2) % [place] % (Auto) 4.8 (2.6-8.5) % Eos % (Auto) 3.7 (0-4.4) % Baso % (Auto) 0.5 (0.2-1.2) % Lymph # (Auto) 5.01 H (0.9-3.2) K/mm3 [place] # (Auto) 0.4 (0.1-0.6) K/mm3 Eos # (Auto) 0.3 (0-0.3) K/mm3 Baso # (Auto) 0.1 (0.0-0.1) K/mm3 Abs Immat Gran (auto) 0.01 (0.00-0.031) K/mm3 Absolute Neuts (auto) 3.3 (1.3-6.7) K/mm3 Absolute Nucleated RBC 0.000 (0.0-0.012) K/mm3 Nucleated RBC % 0.0 (0.0-0.2) % Atypical Lymphocytes Present Platelet Estimate Adequate (Adequate) Ovalocytes 1+ Schistocytes None seen PT 12.5 (11.1-14.7) Seconds INR 0.9 APTT 24.0 (22.3-36.8) Seconds D-Dimer 0.28 (<0.48) ug/mL Sodium 141 (137-145) mmol/L Potassium 4.2 (3.4-5.0) mmol/L Chloride 109 H (98-107) mmol/L Carbon Dioxide 27 (22-30) mmol/L Anion Gap 5 (4-12) mmol/L BUN 16 (7-17) mg/dL Creatinine 0.80 (0.7-1.0) mg/dL Estim Creat Clear Calc 98 ml/min Estimated GFR > 60 (59 - ) Glucose 84 (65-110) mg/dL Calcium 9.2 (8.4-10.2) mg/dL Magnesium 2.1 (1.6-2.3) mg/dL Total Bilirubin 0.2 (0.2-1.3) mg/dL AST 22 (14-36) U/L ALT 15 (6-35) U/L Alkaline Phosphatase 96 (38-126) U/L Troponin I < 0.012 (0.000-0.034) ng/mL Total Protein 7.0 (6.3-8.2) g/dL Albumin 3.9 (3.5-5.1) g/dL Imaging Data Attestation: I personally reviewed and interpreted this imaging study as follows: My impression: Impressions Chest X-Ray 09/01/24 12:38 IMPRESSION: 1. No acute cardiopulmonary disease. ECG Data EKG #1: ECG completion date: 09/01/24 ECG completion time: 12:03 Prior ECG tracings: not available for review Interpretation: Sinus bradycardia, regular rhythm an axis, no ectopy, no ST segment elevations, depressions or inversions. No signs of acute ischemia. No previous EKG for comparison. Normal QTC of 4 3, QRS normal 85, VA interval normal 175. Overall sinus bradycardia Discharge Plan Discharge Clinical Impression: Migraine, Chest pain Patient Disposition: Home, Self-Care Condition: Stable Instructions: Antibiotic Form, Chest Pain (DC), Migraine Headache (ED) Additional Instructions: please follow-up with your primary care provider outpatient. Return with any new or worsening or recurrent concerns at any time. Prescriptions: No Action ondansetron 4 mg tablet,disintegrating 4 mg PO Q6H PRN (Reason: nausea and vomiting) Qty: 12 0RF cephalexin 500 mg capsule 500 mg PO Q6H 7 Days Qty: 28 0RF Follow-up/Referrals: PHYSICIAN,PAPER MAKER [Primary Care Provider] - Time of Disposition: 15:24
[2024-09-01 12:07] LABS: Basophils Absolute Auto 0.1 K/mm3 (0.0-0.1); Basophils Percent Auto 0.5 % (0.2-1.2); Eosinophils Absolute Auto 0.3 K/mm3 (0-0.3); Eosinophils Percent Auto 3.7 % (0-4.4); Hematocrit 39.3 % (37.0-47.0); Hemoglobin 12.8 g/dL (12.0-15.0); Immature Granulocyte Absolute 0.01 K/mm3 (0.00-0.031); Immature Granulocyte Percent A 0.1 % (0-0.5); Lymphocytes Absolute Auto 5.01 K/mm3 (0.9-3.2); Lymphocytes Percent Auto 54.9 % (18.3-44.2); Mean Corpuscular HGB Conc 32.6 g/dl (32-36); Mean Corpuscular Hemoglobin 27.7 pg (26-34); Mean Corpuscular Volume 85.1 fl (80-100); Mean Platelet Volume 9.9 fl (7.4-10.4); Monocytes Absolute Auto 0.4 K/mm3 (0.1-0.6); Monocytes Percent Auto 4.8 % (2.6-8.5); Neutrophils Absolute Auto 3.3 K/mm3 (1.3-6.7); Platelet Count Result 241 k/mm3 (150-375); Red Blood Count 4.62 M/mm3 (4.2-5.4); Red Cell Distribution Width 13.6 % (11.5-14.5); White Blood Count 9.1 K/mm3 (4.5-10.0)
[2024-09-01 12:16] LABS: Alanine Aminotransferase 15 U/L (6-35); Albumin Level 3.9 g/dL (3.5-5.1); Alkaline Phosphatase 96 U/L (38-126); Anion Gap 5 mmol/L (4-12); Aspartate Amino Transferase 22 U/L (14-36); Bilirubin,Total 0.2 mg/dL (0.2-1.3); Blood Urea Nitrogen 16 mg/dL (7-17); Calcium 9.2 mg/dL (8.4-10.2); Carbon Dioxide 27 mmol/L (22-30); Chloride 109 mmol/L (98-107); Estimated CRCL calculation 98 ml/min; Estimated Glomerular Filt Rate > 60; Glucose 84 mg/dL (65-110); Magnesium 2.1 mg/dL (1.6-2.3); Potassium 4.2 mmol/L (3.4-5.0); Sodium 141 mmol/L (137-145)
[2024-09-01] MEDS: diphenhydrAMINE HCl INJ 50 MG/ML VIAL 25 MG IV PUSH (12:21)
[2024-09-01] MEDS: PROCHLORPERAZINE EDISYLATE 10 MG/2 ML VIAL IV PUSH (12:21)
[2024-09-01] MEDS: SODIUM CHLORIDE 0.9% IV 1,000 ML 999 ML IV CONT (12:21)
[2024-09-01 12:26] LABS: INR 0.9; Prothrombin Time 12.5 Seconds (11.1-14.7)
[2024-09-01 12:28] LABS: Troponin I < 0.012 ng/mL (0.000-0.034)
[2024-09-01 12:32] LABS: Atypical Lymphocytes Present; Ovalocytes 1+; Platelet Estimate Adequate (Adequate); Schistocytes None Seen
[2024-09-01 12:35] LABS: D Dimer 0.28 ug/mL (<0.48)
[2024-09-01] MEDS: MAGNESIUM SULF 2 GM/WATER 50ML 2 GM/50 ML BAG IVPB (13:07)
== END 2024-09-01 15:35 | disposition home or self-care (01) ==
PROVIDERS: Emergency Provider Student in an Organized Health Care Education/Training Program
DX: G43.909 Migraine, unspecified, not intractable, without status migrainosus (principal); R07.9 Chest pain, unspecified; R00.1 Bradycardia, unspecified; F17.210 Nicotine dependence, cigarettes, uncomplicated
CPT/HCPCS: 36415; 71045; 80053; 83735; 84484; 85025; 85380; 85610; 85730; 93005; 96361; 96365; 96366; 96375; 99284; J0780; J1200; J3475; J7030

== ENCOUNTER 2025-05-20 17:47 | Emergency (ER) | payer SELFPAY ==
--- NOTE | ~2025-05-20 | XR_ITS ---
EXAMINATION: XR chest 1V portable DATE: 05/20/2025 19:20 INDICATION: Upper respiratory tract infection TECHNIQUE: frontal view of the chest was obtained. COMPARISON: Chest radiograph dated 09/01/2024 FINDINGS: The lungs remain clear with no focal airspace opacities, pulmonary edema, pleural effusion or pneumothorax. The cardiomediastinal silhouette is normal. Visualized bones and soft tissues are unremarkable. IMPRESSION: 1. No acute cardiopulmonary disease. Reviewed, dictated and finalized at location A.
[2025-05-20 17:57] VITALS: BP 140/86; PULSE 81; RESP 16; TEMP 36.3; O2SAT 100
[2025-05-20] MEDS: ACETAMINOPHEN 500 MG TABLET 1000 MG PO (19:27)
--- NOTE | 2025-05-20 19:31 | ED.GENADULT ---
HPI - General Adult General Chief complaint: Upper Respiratory Infection Stated complaint: congestion, headache Time Seen by Provider: 05/20/25 19:04 History of Present Illness HPI narrative: Patient is a 55-year-old female who presents to the emergency department this evening complaining of URI symptoms. She states that she has been having sinus congestion, runny nose with sore throat for the past 2 days. She did spike a fever yesterday. Did not take any medications for this. Denies any sick contacts at home. Denies any additional symptoms or concerns at this time. Related Data Allergies Allergy/AdvReac Type Severity Reaction Status Date / Time No Known Allergies Allergy Verified 05/20/25 17:59 Review of Systems Review of Systems: All systems are reviewed and are negative unless stated otherwise in the HPI. [facility] Past Medical History Medical History History of migraine Surgical History Surgical History H/O breast biopsy H/O: hysterectomy Family History Family History Mother Family history non-contributory Social History Social History Smoking packs per day: 0.5 Smoking cigarettes per day: 10.0 Smoking status: Current every day smoker Substance use: current Substance use type: marijuana Living arrangements: with family Gender identity (if verbalized by the patient): Female Sexual Orientation (if Verbalized by the Patient): Straight or Heterosexual Spiritual care concerns: No Exam Narrative: General: Alert, awake, afebrile, in no acute distress. HEENT: PERRL, no rhinorrhea, no post nasal drip, oropharynx clear, clear TM membrane. Neck: Trachea midline, no JVD, no lymphadenopathy. Cardiovascular: Regular rate and rhythm, no murmurs, rubs or gallops, no peripheral edema. Respiratory: Clear to auscultation bilaterally, no tachypnea, no wheezing, no rhonchi, no rubs, no respiratory distress. Abdomen: Soft, nontender, nondistended, no rebound, no guarding, no peritoneal signs. Musculoskeletal: No joint swelling or deformity, normal muscle tone. Skin: No rashes or petechia, no signs of infection. Psychiatric: Alert and oriented, normal behavior and judgment for situation. Neurological: Alert and oriented to person, place, and time. Follows all commands. No focal deficits, speech is clear and fluent. Course Vital Signs Vital signs: Vital Signs Temperature 97.4 F L 05/20/25 17:57 Pulse Rate 81 05/20/25 17:57 Respiratory Rate 16 05/20/25 17:57 Blood Pressure 140/86 05/20/25 17:57 Pulse Oximetry 100 05/20/25 17:57 Oxygen Delivery Room Air 05/20/25 17:57 Temperature 97.4 F L 05/20/25 17:57 Pulse Rate 81 05/20/25 17:57 Respiratory Rate 16 05/20/25 17:57 Blood Pressure 140/86 05/20/25 17:57 Pulse Oximetry 100 05/20/25 17:57 Oxygen Delivery Room Air 05/20/25 17:57 Medical Decision Making MDM Narrative Medical decision making narrative: The patient was evaluated by myself in the emergency department. History is obtained from patient who is an independent historian and physical exam was performed. External medical records were reviewed at this time. Patient was administered a g of oral Tylenol for headache. Viral swabs were obtained and noted to be positive for COVID. Imaging studies obtained included CXR which was independently interpreted by me revealing no acute process, which is pending final radiology interpretation. Differential diagnosis considerations include acute viral syndrome, infectious process such as pneumonia/otitis media, dehydration. Comorbidities impacting this visit include none. I have evaluated and discussed social determinants of health with the patient that could potentially impact subsequent diagnosis and treatment plans. On repeat assessment of the patient, reevaluation revealed that the patient is doing well and is in no acute distress. Patient symptoms have improved since she arrived to our emergency department. Repeat vital signs were all reviewed and noted to be stable. Differential diagnosis and treatment plan were discussed with the patient at bedside. Patient agrees with discussion and after shared medical decision making agrees with discharge. All questions were answered to the patient's satisfaction. Patient will follow up with her PCP in 3-5 days. Patient was provided with strict return precautions and instructed to return to the emergency department if any new or worsening symptoms develop. The patient was discharged in stable condition. Vital Signs Vital Signs: Vital Signs Temperature 97.4 F L 05/20/25 17:57 Pulse Rate 81 05/20/25 17:57 Respiratory Rate 16 05/20/25 17:57 Blood Pressure 140/86 05/20/25 17:57 Pulse Oximetry 100 05/20/25 17:57 Oxygen Delivery Room Air 05/20/25 17:57 Temperature 97.4 F L 05/20/25 17:57 Pulse Rate 81 05/20/25 17:57 Respiratory Rate 16 05/20/25 17:57 Blood Pressure 140/86 05/20/25 17:57 Pulse Oximetry 100 05/20/25 17:57 Oxygen Delivery Room Air 05/20/25 17:57 Lab Data Labs: Lab Results 05/20/25 Range/Units 19:10 Influenza A (RT-PCR) Negative (Negative) Influenza B (RT-PCR) Negative (Negative) RSV (RT-PCR) Negative (Negative) SARS-CoV-2 RNA (RT-PCR) Positive A (Negative) Discharge Plan Discharge Clinical Impression: Upper respiratory infection, COVID Patient Disposition: Home Condition: Improved Instructions: Antibiotic Form, Viral Syndrome (ED), COVID-19 (Coronavirus Disease 2019) (ED) Additional Instructions: Please follow-up with your family doctor within the next 3-5 days. Return the emergency department if any new or worsening symptoms develop. Maintain your oral hydration by drinking lots of water throughout the day. Take ibuprofen and Tylenol alternating between the 2 for your symptoms. Patient Language: [place] Prescriptions: No Action ondansetron 4 mg tablet,disintegrating 4 mg PO Q6H PRN (Reason: nausea and vomiting) Qty: 12 0RF cephalexin 500 mg capsule 500 mg PO Q6H 7 Days Qty: 28 0RF Follow-up/Referrals: PHYSICIAN,COVER MACHINE OPERATOR [Primary Care Provider, Internal Medicine] Harinder Gaspar MD [Physician, Family Practice] - 3 Days Stand Alone Forms: Work/School Release IP Time of Disposition: 20:01
[2025-05-20 19:51] LABS: Influenza A QL RT-PCR Negative (Negative); Influenza B QL RT-PCR Negative (Negative); RSV RNA, RT-PCR Negative (Negative); SARS-CoV-2 RNA PCR Positive (Negative)
== END 2025-05-20 20:09 | disposition home or self-care (01) ==
PROVIDERS: Physician Assistant; Emergency Provider Emergency Medicine
DX: U07.1 COVID-19 (principal); J06.9 Acute upper respiratory infection, unspecified; F17.210 Nicotine dependence, cigarettes, uncomplicated
CPT/HCPCS: 71045; 87637; 99283; A9270

== ENCOUNTER 2025-07-02 07:41 | Emergency (ER) | payer SELFPAY ==
[2025-07-02] VITALS (19 sets, daily range): BP systolic 130–178; BP diastolic 76–95; PULSE 42–69; RESP 12–22; TEMP 36.4; O2SAT 93–100
--- NOTE | ~2025-07-02 | XR_ITS ---
EXAMINATION: XR chest 2V, 07/02/2025 8:25 CDT HISTORY: cp X MONDAY, PAIN LT SIDED RADIATING DOWN ARM COMPARISON: No comparisons available. Technique: 2 views obtained. Findings: The lungs are clear, no effusion. No pneumothorax. Heart is normal size. Mediastinal and hilar contours are within normal limits. Bony thorax no acute abnormality. Impression: No acute cardiopulmonary abnormality. Reviewed, dictated and finalized at location P. Impression: No acute cardiopulmonary abnormality.
--- NOTE | 2025-07-02 07:42 | ECG_ITS ---
Test Date: 2025-07-02 07:53:10 Measurements Intervals [place] Rate: 54 P: 52 SD: 167 QRS: 37 QRSD: 82 T: 50 QT: 392 QTc: 374 Interpretive Statements SINUS BRADYCARDIA WITH SINUS ARRHYTHMIA BASELINE ARTIFACT- V5 BORDERLINE ECG Compared to ECG 09/01/2024 12:03:20 HEART RATE HAS INCREASED Electronically Signed On 07-02-2025 08:22:40 CDT by Luis France D.O.
[2025-07-02] MEDS: ASPIRIN 81 MG CHEWABLE TABLET 324 MG PO (07:59)
--- NOTE | 2025-07-02 08:01 | ED_ITS ---
HPI - General Adult General Chief complaint: Chest Pain Stated complaint: left sided chest pain Time Seen by Provider: 07/02/25 07:44 History of Present Illness HPI narrative: 55-year-old female presents to the emergency department for evaluation for left- sided chest pain that started yesterday. Patient states the chest pain has been constant. Patient denies any radiation of the chest pain. Patient reports chest pain is worsened with deep inspiration and movement. Patient denies any prior cardiac history. Patient denies any prior history of hypertension, high cholesterol or diabetes. Patient does report a prior history of bradycardia. Patient has no history of coronary disease. At time of evaluation patient is well-appearing and is in no distress. Patient has no prior history of PE or DVT. Related Data Allergies Allergy/AdvReac Type Severity Reaction Status Date / Time No Known Allergies Allergy Verified 07/02/25 07:59 Review of Systems 2 Review of Systems: All systems reviewed & are unremarkable except as noted in HPI and below PMFSH Past Medical History Medical History History of migraine Surgical History Surgical History H/O breast biopsy H/O: hysterectomy Family History Family History Mother Family history non-contributory Social History Social History Smoking packs per day: 0.5 Smoking cigarettes per day: 10.0 Smoking status: Current every day smoker Substance use: current Substance use type: marijuana Living arrangements: with family Gender identity (if verbalized by the patient): Female Sexual Orientation (if Verbalized by the Patient): Straight or Heterosexual Spiritual care concerns: No Exam 2 Narrative: APPEARANCE: Well appearing, no pain, no distress, well-nourished. HEAD: normocephalic, atraumatic. EYES: PERRLA/EOMI, conjunctivae clear. NOSE: Normal no drainage EARS:TMS clear with good light reflex. THROAT: Pharynx clear, no exudate. NECK: Supple. No adenopathy, no masses. RESPIRATORY: Airway patent, respirations nonlabored. Clear to auscultation bilaterally, no rales, rhonchi, wheezing. CARDIOVASCULAR: Regular rate and rhythm without murmurs rubs or gallops. ABDOMINAL: Soft, nontender, nondistended, normal bowel sounds MUSCULOSKELETAL: Left-sided chest wall tenderness to palpation with no evidence rash ecchymosis NEURO: Alert. Cranial nerves II through XII intact. Good gait. Good coordination SKIN: Warm, dry. Normal Color Course Vital Signs Vital signs: Vital Signs Temperature 97.6 F 07/02/25 07:47 Pulse Rate 58 L 07/02/25 07:47 Respiratory Rate 12 07/02/25 07:47 Blood Pressure 158/82 H 07/02/25 07:47 Pulse Oximetry 93 07/02/25 07:47 Oxygen Delivery Room Air 07/02/25 07:47 Temperature 97.6 F 07/02/25 07:47 Pulse Rate 45 L 07/02/25 12:31 Respiratory Rate 13 07/02/25 12:31 Blood Pressure 178/89 H 07/02/25 12:31 Pulse Oximetry 100 07/02/25 12:31 Oxygen Delivery Room Air 07/02/25 07:56 Medical Decision Making MDM Narrative Medical decision making narrative: 55-year-old female presents to the emergency department for evaluation for left- sided chest pain. Patient is currently afebrile but no leukocytosis hemoglobin of 11.9. Patient had negative serial troponins. Patient's D-dimer is not elevated INR is 1.0. No acute abnormalities on her CMP. Chest x-ray shows no acute cardiopulmonary abnormality. Low concern for pulmonary embolism or ACS. Patient's symptoms are consistent with a muscular injury versus pleuritic chest pain. Patient was updated the results of her workup. Patient was encouraged close follow-up with primary care physician. All questions concerns were addressed. Differential Diagnosis Differential Diagnosis: Coronary disease, pulmonary embolism, rib fracture, rib contusion, pneumonia, pneumothorax Vital Signs Vital Signs: Vital Signs Temperature 97.6 F 07/02/25 07:47 Pulse Rate 58 L 07/02/25 07:47 Respiratory Rate 12 07/02/25 07:47 Blood Pressure 158/82 H 07/02/25 07:47 Pulse Oximetry 93 07/02/25 07:47 Oxygen Delivery Room Air 07/02/25 07:47 Temperature 97.6 F 07/02/25 07:47 Pulse Rate 45 L 07/02/25 12:31 Respiratory Rate 13 07/02/25 12:31 Blood Pressure 178/89 H 07/02/25 12:31 Pulse Oximetry 100 07/02/25 12:31 Oxygen Delivery Room Air 07/02/25 07:56 Lab Data Lab results reviewed: Yes I reviewed the patient's lab results. 07/02/25 08:17 07/02/25 08:17 Labs: Lab Results 07/02/25 07/02/25 07/02/25 Range/Units 08:17 08:17 11:02 WBC 8.1 (4.5-10.0) K/mm3 RBC 4.46 (4.2-5.4) M/mm3 Hgb 11.9 L (12.0-15.0) g/dL Hct 37.2 (37.0-47.0) % MCV 83.4 (80-100) fl MCH 26.7 (26-34) pg MCHC 32.0 (32-36) g/dl RDW 13.6 (11.5-14.5) % Plt Count 232 (150-375) k/mm3 MPV 9.7 (7.4-10.4) fl Immature Gran % (Auto) 0.2 (0-0.5) % Neut % (Auto) 44.3 L (45.5-73.1) % Lymph % (Auto) 46.6 H (18.3-44.2) % [place] % (Auto) 5.6 (2.6-8.5) % Eos % (Auto) 2.9 (0-4.4) % Baso % (Auto) 0.4 (0.2-1.2) % Lymph # (Auto) 3.75 H (0.9-3.2) K/mm3 [place] # (Auto) 0.5 (0.1-0.6) K/mm3 Eos # (Auto) 0.2 (0-0.3) K/mm3 Baso # (Auto) 0.0 (0.0-0.1) K/mm3 Abs Immat Gran (auto) 0.02 (0.00-0.031) K/mm3 Absolute Neuts (auto) 3.6 (1.3-6.7) K/mm3 Absolute Nucleated RBC 0.000 (0.0-0.012) K/mm3 Nucleated RBC % 0.0 (0.0-0.2) % PT 12.9 (11.1-14.7) Seconds INR 1.0 APTT 26.6 (22.3-36.8) Seconds D-Dimer 0.44 Cancelled (<0.48) ug/mL Sodium 137 (137-145) mmol/L Potassium 4.2 (3.4-5.0) mmol/L Chloride 107 (98-107) mmol/L Carbon Dioxide 25 (22-30) mmol/L Anion Gap 5 (4-12) mmol/L BUN 14 (7-17) mg/dL Creatinine 0.80 (0.7-1.0) mg/dL Estim Creat Clear Calc 101 ml/min Estimated GFR > 60 (59 - ) Glucose 96 (65-110) mg/dL Calcium 8.8 (8.4-10.2) mg/dL Total Bilirubin 0.2 (0.2-1.3) mg/dL AST 26 (14-36) U/L ALT 18 (6-35) U/L Alkaline Phosphatase 105 (38-126) U/L Troponin I < 0.012 < 0.012 (0.000-0.034) ng/mL Total Protein 6.6 (6.3-8.2) g/dL Albumin 3.7 (3.5-5.1) g/dL Lipase 69 (23-300) U/L Imaging Data Radiologist's impression: Impressions Chest X-Ray 07/02/25 08:39 Impression: No acute cardiopulmonary abnormality. Discharge Plan Discharge Clinical Impression: Atypical chest pain Patient Disposition: Home Condition: Stable Instructions: Antibiotic Form, Chest Pain (ED), Chest Wall Pain (ED) Additional Instructions: Tylenol and ibuprofen for pain control. Have close follow-up with primary care physician for additional outpatient cardiac testing. If you have any worsening symptoms then please call or return to the emergency department. Patient Language: Macedonian Prescriptions: No Action ondansetron 4 mg tablet,disintegrating 4 mg PO Q6H PRN (Reason: nausea and vomiting) Qty: 12 0RF cephalexin 500 mg capsule 500 mg PO Q6H 7 Days Qty: 28 0RF Follow-up/Referrals: PHYSICIAN,REFUSE LABORER [Primary Care Provider, Internal Medicine] Stand Alone Forms: Work/School Release IP Quality HEART score for chest pain patients History: slightly suspicious ECG: normal Age: > 45 and < 65 years Risk factors: 1 or 2 risk factors Troponin: < or = to 1x normal limit Heart score: 2
[2025-07-02] MEDS: KETOROLAC 15 MG/ML VIAL (*BKC) IV PUSH (08:04)
[2025-07-02 08:26] LABS: Hematocrit 37.2 % (37.0-47.0); Hemoglobin 11.9 g/dL (12.0-15.0); Immature Granulocyte Percent A 0.2 % (0-0.5); Lymphocytes Absolute Auto 3.75 K/mm3 (0.9-3.2); Mean Corpuscular HGB Conc 32.0 g/dl (32-36); Mean Corpuscular Hemoglobin 26.7 pg (26-34); Mean Corpuscular Volume 83.4 fl (80-100); Nucleated Red Blood Cells Absolute Auto 0.000 K/mm3 (0.0-0.012); Nucleated Red Blood Cells Perc 0.0 % (0.0-0.2); Platelet Count Result 232 k/mm3 (150-375); Red Blood Count 4.46 M/mm3 (4.2-5.4); White Blood Count 8.1 K/mm3 (4.5-10.0)
[2025-07-02 08:36] LABS: INR 1.0; Prothrombin Time 12.9 Seconds (11.1-14.7)
[2025-07-02 08:37] LABS: Partial Thromboplastin Time 26.6 Seconds (22.3-36.8)
[2025-07-02 08:42] LABS: Alanine Aminotransferase 18 U/L (6-35); Albumin Level 3.7 g/dL (3.5-5.1); Alkaline Phosphatase 105 U/L (38-126); Anion Gap 5 mmol/L (4-12); Aspartate Amino Transferase 26 U/L (14-36); Bilirubin,Total 0.2 mg/dL (0.2-1.3); Blood Urea Nitrogen 14 mg/dL (7-17); Calcium 8.8 mg/dL (8.4-10.2); Carbon Dioxide 25 mmol/L (22-30); Chloride 107 mmol/L (98-107); Estimated CRCL calculation 101 ml/min; Estimated Glomerular Filt Rate > 60; Glucose 96 mg/dL (65-110); Lipase 69 U/L (23-300); Potassium 4.2 mmol/L (3.4-5.0); Sodium 137 mmol/L (137-145); Total Protein 6.6 g/dL (6.3-8.2)
[2025-07-02 08:53] LABS: Troponin I < 0.012 ng/mL (0.000-0.034)
--- NOTE | 2025-07-02 10:49 | ECG_ITS ---
Test Date: 2025-07-02 10:55:21 Measurements Intervals [place] Rate: 45 P: 54 NE: 186 QRS: 32 QRSD: 88 T: 64 QT: 464 QTc: 401 Interpretive Statements SINUS BRADYCARDIA WITH SINUS ARRHYTHMIA ABNORMAL ECG Compared to ECG 07/02/2025 07:53:10 HEART RATE HAS DECREASED Electronically Signed On 07-02-2025 14:40:26 CDT by Luis Farnce D.O.
[2025-07-02 11:39] LABS: Troponin I < 0.012 ng/mL (0.000-0.034)
== END 2025-07-02 12:39 | disposition home or self-care (01) ==
PROVIDERS: Emergency Provider Emergency Medicine
DX: R07.89 Other chest pain (principal); F17.210 Nicotine dependence, cigarettes, uncomplicated; F12.90 Cannabis use, unspecified, uncomplicated
CPT/HCPCS: 36415; 71046; 80053; 83690; 84484; 85025; 85380; 85610; 85730; 93005; 96374; 99284; A9270; J1885